=== PATIENT | male | born 1980 | race Caucasian/White ===

== ENCOUNTER 2022-08-16 15:20 | Outpatient (CLI) | payer OTHER, SELFPAY ==
[2022-08-16 18:25] LABS: Basophils Absolute Auto 0.1 K/mm3 (0.0-0.1); Basophils Percent Auto 0.9 % (0.2-1.2); Eosinophils Absolute Auto 0.5 K/mm3 (0-0.3); Eosinophils Percent Auto 5.8 % (0-4.4); Hematocrit 48.5 % (42.0-52.0); Hemoglobin 16.7 g/dL (14.0-18.0); Immature Granulocyte Absolute 0.05 K/mm3 (0.00-0.031); Immature Granulocyte Percent A 0.5 % (0-0.5); Lymphocytes Absolute Auto 2.32 K/mm3 (0.9-3.2); Lymphocytes Percent Auto 25.5 % (18.3-44.2); Mean Corpuscular HGB Conc 34.4 g/dl (32-36); Mean Corpuscular Hemoglobin 34.2 pg (26-34); Mean Corpuscular Volume 99.2 fl (80-100); Monocytes Percent Auto 10.8 % (2.6-8.5); Neutrophils Absolute Auto 5.1 K/mm3 (1.3-6.7); Neutrophils Percent Auto 56.5 % (45.5-73.1); Platelet Count Result 309 k/mm3 (150-375); Red Blood Count 4.89 M/mm3 (4.6-6.20); Red Cell Distribution Width 11.2 % (11.5-14.5); White Blood Count 9.1 K/mm3 (4.5-10.0)
[2022-08-16 18:31] LABS: Alanine Aminotransferase 86 U/L (6-50); Albumin Level 4.4 g/dL (3.5-5.1); Alkaline Phosphatase 91 U/L (38-126); Anion Gap 7 mmol/L (8-16); Aspartate Amino Transferase 67 U/L (17-59); Bilirubin,Total 0.8 mg/dL (0.2-1.3); Blood Urea Nitrogen 31 mg/dL (9-20); Calcium 9.4 mg/dL (8.4-10.2); Carbon Dioxide 30 mmol/L (22-30); Chloride 100 mmol/L (98-107); Cholesterol 223 mg/dL (0-200); Estimated Glomerular Filt Rate 55; Glucose 76 mg/dL (65-110); HDL Direct 89 mg/dL; Potassium 4.3 mmol/L (3.4-5.0); Sodium 137 mmol/L (137-145); Triglycerides 88 mg/dL (<150)
[2022-08-16 18:42] LABS: LDL Cholesterol Direct 103 mg/dL
[2022-08-16 18:59] LABS: Prostate Specific Antigen 0.2 ng/mL (< OR = 4.0)
[2022-08-22 18:56] LABS: Testosterone Free 2.7 pg/mL (35.0-155.0); Testosterone Total 20 ng/dL (250-1100)
== END 2022-08-16 15:21 | disposition home or self-care (01) ==
LOC: ANHGOSHLAB 15:22
PROVIDERS: PCP Family Medicine; Visit Provider Family Medicine
DX: I10 Essential (primary) hypertension (principal); R53.83 Other fatigue; E29.1 Testicular hypofunction; Z12.5 Encounter for screening for malignant neoplasm of prostate; Z13.220 Encounter for screening for lipoid disorders
CPT/HCPCS: 36415; 80053; 80061; 84153; 84402; 84403; 85025; G0103

== ENCOUNTER 2023-01-04 10:08 | Outpatient (CLI) | payer OTHER, SELFPAY ==
--- NOTE | ~2023-01-04 | XR_ITS ---
XR knee LT min 4V 01/04/2023 10:29 INDICATION: Left knee pain PROCEDURE: 4 views left knee COMPARISON: No prior studies for comparison. FINDINGS: Fracture, dislocation or subluxation is not identified. No significant joint effusion. Ther e is anatomic alignment. The soft tissues appear within normal limits. No foreign bodies are identif ied. IMPRESSION: 1: NO ACUTE BONE OR JOINT ABNORMALITY IDENTIFIED. Reviewed, dictated and finalized at location A.
== END 2023-01-04 10:09 | disposition home or self-care (01) ==
LOC: ANHIMG 10:09
PROVIDERS: PCP Family Medicine; Visit Provider Family Medicine
DX: M25.562 Pain in left knee (principal)
CPT/HCPCS: 73564

== ENCOUNTER 2023-12-26 14:42 | Outpatient (CLI) | payer OTHER, SELFPAY ==
[2023-12-26 16:26] LABS: Basophils Absolute Auto 0.1 K/mm3 (0.0-0.1); Basophils Percent Auto 0.8 % (0.2-1.2); Eosinophils Absolute Auto 0.3 K/mm3 (0-0.3); Eosinophils Percent Auto 2.4 % (0-4.4); Hematocrit 49.9 % (42.0-52.0); Immature Granulocyte Absolute 0.07 K/mm3 (0.00-0.031); Immature Granulocyte Percent A 0.6 % (0-0.5); Lymphocytes Absolute Auto 2.23 K/mm3 (0.9-3.2); Lymphocytes Percent Auto 19.9 % (18.3-44.2); Mean Corpuscular HGB Conc 34.1 g/dl (32-36); Mean Corpuscular Hemoglobin 33.2 pg (26-34); Mean Corpuscular Volume 97.5 fl (80-100); Mean Platelet Volume 10.1 fl (7.4-10.4); Monocytes Absolute Auto 1.1 K/mm3 (0.1-0.6); Monocytes Percent Auto 9.4 % (2.6-8.5); Neutrophils Absolute Auto 7.5 K/mm3 (1.3-6.7); Neutrophils Percent Auto 66.9 % (45.5-73.1); Platelet Count Result 354 k/mm3 (150-375); Red Blood Count 5.12 M/mm3 (4.6-6.20); White Blood Count 11.2 K/mm3 (4.5-10.0)
[2023-12-26 16:57] LABS: Alanine Aminotransferase 27 U/L (6-50); Albumin Level 4.6 g/dL (3.5-5.1); Alkaline Phosphatase 87 U/L (38-126); Anion Gap 8 mmol/L (4-12); Aspartate Amino Transferase 33 U/L (17-59); Bilirubin,Total 1.3 mg/dL (0.2-1.3); Blood Urea Nitrogen 28 mg/dL (9-20); Calcium 9.8 mg/dL (8.4-10.2); Carbon Dioxide 27 mmol/L (22-30); Chloride 102 mmol/L (98-107); Cholesterol 249 mg/dL (0-200); Estimated Glomerular Filt Rate 47; Glucose 96 mg/dL (65-110); HDL Direct 58 mg/dL; Potassium 4.4 mmol/L (3.4-5.0); Sodium 137 mmol/L (137-145); Triglycerides 121 mg/dL (<150)
[2023-12-26 17:07] LABS: LDL Cholesterol Direct 128 mg/dL
[2023-12-26 17:28] LABS: Prostate Specific Antigen 0.5 ng/mL (< OR = 4.0)
[2024-01-01 10:08] LABS: Testosterone Free 10.2 pg/mL (35.0-155.0); Testosterone Total 60 ng/dL (250-1100)
== END 2023-12-26 14:43 | disposition home or self-care (01) ==
LOC: ANHGOSHLAB 14:43
PROVIDERS: PCP Family Medicine; Visit Provider Family Medicine
DX: E29.1 Testicular hypofunction (principal); Z12.5 Encounter for screening for malignant neoplasm of prostate; R53.83 Other fatigue; Z13.228 Encounter for screening for other metabolic disorders
CPT/HCPCS: 36415; 80053; 80061; 84153; 84402; 84403; 85025; G0103

== ENCOUNTER 2024-10-14 10:43 | Outpatient (CLI) | payer BC, SELFPAY ==
--- OUTSIDE RECORDS SUMMARY | 2024-10-14 10:47 | XMS_ITS | Clinical Summary ---
Author Organization [facility] Address [address] [place] [address] Phone Care Team Providers Care Hoisting Pile Driving Engineer Name Role Phone Atif Bautista MD Primary Care Provider [phone] Social History Tobacco Use Types Packs/Day Years Used Date Smoking Tobacco: Never Assessed Sex and Gender Information Value Date Recorded Sex Assigned at Not on file Legal Sex Male 11:38 AM BOOKER Gender Identity Not on file Sexual Orientation Not on file Plan of Treatment Health Maintenance Due Date Last Done Comments Hepatitis C Virus (HCV) Screening 1978 TdaP Immunization 1978 Human Papillomavirus (HPV) Immunization (1 - Male 3-dose series) 1993 Hepatitis B Immunization (1 of 3 - 19+ 3-dose series) 1997 SARS-COV-2 Immunization ( - season) 2023 12/11/2020, 11/13/2020 Cologuard 12/27/2023 Colonoscopy 12/27/2023 Colorectal Cancer Screening 12/27/2023 Immunochemical Fecal Occult Blood 12/27/2023 Influenza Immunization (#1) 2024 Respiratory Syncytial Virus (RSV) Immunization (Adult) (1 - 1-dose 75+ series) 2053 Meningococcal Immunization (ACWY) Aged Out No longer eligible b ased on patient's age to complete this topic Pneumococcal Immunization Combined Aged Out No longer eligible b ased on patient's age to complete this topic Rotavirus Immunization Aged Out No lo nger eligible based on patient's age to complete this topic Care Teams Hoisting Pile Driving Engineer Relationship Specialty Start Date End Date Atif Bautista MD [address] [place] [address] [address] [place] [address] PCP - General Internal Medicine 05/21/21
--- OUTSIDE RECORDS SUMMARY | 2024-10-14 10:47 | XMS_ITS | Encounter Summary ---
Author Organization [facility] Address [address] [place] [address] Phone Care Team Providers Care Ota Name Role Phone Atif Bautista MD Primary Care Provider [phone] Encounter Details Date Type Department Care Team (Late st Contact Info) Description 05/21/2021 Lab Requisition [facility] [address] [place] [address] Molly Ibanez, SAIL FINISHER HAND, MEDICAL CLERICAL ASSISTANT [address] [place] [address] Encounter for pre-employment examination Social History Tobacco Use Types Packs/Day Years Used Date Smoking Tobacco: Never Assessed Sex and Gender Information Value Date Recorded Sex Assigned at Not on file Legal Sex Male 11:38 AM BORING MACHINE OPERATOR HELPER Gender Identity Not on file Sexual Orientation Not on file COVID-19 Exposure Response Date Recorded In the last month, have you been in contact with someone who was confirmed or suspected to have Coronavirus / COVID-19? Unable to assess 05/21/2021 11:47 AM BORING MACHINE OPERATOR HELPER documented as of this encounter Plan of Treatment Not on file documented as of this encounter Procedures Procedure Name Priority Date/Time Associated Diagnosis Comments QUANTIFERON-TB GOLD PLUS Routine 05/21/2021 9:50 AM BORING MACHINE OPERATOR HELPER Encounter for pre-employment examination documented in this encounter Results * QUANTIFERON-TB GOLD PLUS (05/21/2021 9:50 AM BORING MACHINE OPERATOR HELPER) NIL CONTROL 0.03 <8.01 IU/mL 05/23/2021 12:13 PM [facility] TB ANTIGEN 1 0.00 <0.35 IU/mL 05/23/2021 12:13 PM [facility] TB ANTIGEN 2 0.00 <0.35 IU/mL 05/23/2021 12:13 PM [facility] MITOGEN CONTROL >10.00 >0.49 IU/mL 05/24/19 12:13 PM [facility] INTEPRETATION TB NEGATIVE NEGATIVE, NEGATIVE (TB antigen response less than 25% of internal negative control value) 05/23/2021 12:13 PM [facility] Comment:No immune response t o Mycobacterium tuberculosis antigens was noted. M. tuberculosis infection unlikely. Blood No Phlebotomy Charged / Unknown 05/21/2021 9:50 AM BORING MACHINE OPERATOR HELPER 05/21/2021 1:02 PM [facility] - 05/23/2021 12:13 PM BORING MACHINE OPERATOR HELPER A POSITIVE QUANTIFERON-TB GOLD PLUS RESULT SHOULD NOT BE THE SOLE OR DEFINITIVE BASIS FOR DETERMINING INFECTION WITH M.TUBERCULOSIS. Diagnosing or excluding tuberculosis disease, and assessing the probability of LTBI, requires a combination of epidemiological, historical, medical and diagnostic findings (e.g., acid fast bacilli (AFB) smear and culture, chest xray) that should be taken into account when interpreting QFT-Plus results. Furthermore, the magnitude of the measured gamma interferon level cannot be correlated to stage or degree of infection, level of immune responsiveness, or likelihood for progression to active disease. The Nil control adjusts for background (e.g., elevated levels of circulating gamma interferon or presence of heterophile antibodies). The Mitogen control serves as an internal positive control and verifies each specimen tested can produce a gamma interferon response. Low mitogen may occur with insufficient lymphocytes, reduced lymphocyte activity due to improper specimen handling, filling/mixing of the mitogen tube, or inability of the patient's lymphocytes to generate gamma interferon. Infection with other Mycobacteria, including M. kansasii, M. szulgai, and M. marinum, may cause false positive results. A negative QuantiFERON-TB Gold Plus result does not preclude the possibility of M. tuberculosis infection or tuberculosis disease: false negative results can be due to incorrect blood sample collection/ improper handling of the specimen, stage of infection (e.g., specimen obtained prior to the development of cellular immune response), co-morbid conditions which affect immune function, or other individual immunological factors. The minimum number of lymphocytes required for a reliable test has not been established and may also be variable. Diagnostic testing for Mycobacterium tuberculosis using Interferon Gamma Release Assays should follow applicable published guidelines, including when testing in populations such as children, women, and HIV-infected or otherwise immunocompromised individuals. https://www.cdc.gov/tb/publications/guidelines/testing.htm Molly Ibanez APRN, CNP IMMUNOLOGY ORDERABLES F inal Result [facility] [address] [place] [address], documented in this encounter Visit Diagnoses Diagnosis Encounter for pre-employment examination Health examination of defined subpopulation documented in this encounter Care Teams Ota Relationship Specialty Start Date End Date Atif Bautista MD [address] [place] [address] [address] [place] [address] PCP - General Internal Medicine 05/21/21 documented as of this encounter
--- OUTSIDE RECORDS SUMMARY | 2024-10-14 10:47 | XMS_ITS | Referral Summary ---
Author Organization [address] Address [address] [place] [address] Care Team Providers Care Item Repair Manager Name Role Phone Mj Guzman DO Primary Care Provider [phone] Allergies No known active allergies Medications atorvastatin (LIPITOR) 20 mg tablet Take 20 mg by mouth daily 05/03/19 Active hydroCHLOROthi azide (HYDRODIURIL) 12.5 mg tablet TAKE 1 TABLET BY MOUTH ONCE DAILY . APPOINTMENT REQUIRED FOR FUTURE REFILLS 05/06/19 23 Active lisinopriL (PRINIVIL,ZEST RIL) 10 mg tablet Take 10 mg by mouth daily 05/03/19 23 Active testosterone cypionate (DEPO-TESTOTER ONE) 200 mg/mL injection INJECT 1.5ML (300MG) INTRAMUSCULARLY EVERY 2 WEEKS. 05/04/19 Active BD Luer-Kasia Syringe 3 mL 23 x 1 syringe USE 1 SYRINGE TO INJECT TESTOSTERONE EVERY TWO WEEKS 05/03/19 Active mupirocin (BACTROBAN) 2 % ointmentIndica tions:Cellulit is of right forearm APPLY OINTMENT TOPICALLY THREE TIMES DAILY 22 g 01/12/20 23 Active Active Problems No known active problems Immunizations Immunization Administration Dates Next Due Tdap 01/09/2023 Social History Tobacco Use Types Packs/Day Years Used Date Smoking Tobacco: Never Assessed Sex and Gender Information Value Date Recorded Sex Assigned at Not on file Legal Sex Male 10:41 PM BODY DESIGNER Gender Identity Not on file Sexual Orientation Not on file Last Filed Vital Signs Vital Sign Reading Time Taken Comments Blood Pressure 126/80 01/09/2023 3:14 PM CDT Pulse 105 01/09/2023 3:14 PM CDT Temperature 37.1 C (98.8 F) 01/09/2023 3:14 PM CDT Respiratory Rate 16 01/09/2023 3:14 PM CDT Oxygen Saturation 98% 01/09/2023 3:14 PM CDT Inhaled Oxygen Concentration - - Weight 90.7 kg (200 lb) 01/09/2023 3:14 PM CDT Height 177.8 cm (5' 10) 05/21/2022 8:49 AM BODY DESIGNER Body Mass Index 28.7 05/21/2022 8:49 AM BODY DESIGNER Plan of Treatment Not on file Insurance [employer] OPEN ACCESS Care Teams Item Repair Manager Relationship Specialty Start Date End Date Mj Guzman DO PCP - General Family Medicine 05/21/22
--- OUTSIDE RECORDS SUMMARY | 2024-10-14 10:47 | XMS_ITS | Clinical Summary ---
Author Organization [address] Address [address] [place] [address] Care Team Providers Care Dean Of Chapel Name Role Phone Mj Guzman DO Primary Care Provider [phone] Allergies No known active allergies Medications atorvastatin (LIPITOR) 20 mg tablet Take 20 mg by mouth daily 05/03/19 23 Active hydroCHLOROthi azide (HYDRODIURIL) 12.5 mg tablet TAKE 1 TABLET BY MOUTH ONCE DAILY . APPOINTMENT REQUIRED FOR FUTURE REFILLS 05/06/19 23 Active lisinopriL (PRINIVIL,ZEST RIL) 10 mg tablet Take 10 mg by mouth daily 05/03/19 23 Active testosterone cypionate (DEPO-TESTOTER ONE) 200 mg/mL injection INJECT 1.5ML (300MG) INTRAMUSCULARLY EVERY 2 WEEKS. 05/04/19 23 Active BD Luer-Kasia Syringe 3 mL 23 x 1 syringe USE 1 SYRINGE TO INJECT TESTOSTERONE EVERY TWO WEEKS 05/03/19 23 Active mupirocin (BACTROBAN) 2 % ointmentIndica tions:Cellulit is of right forearm APPLY OINTMENT TOPICALLY THREE TIMES DAILY 22 g 01/12/20 23 Active Active Problems No known active problems Immunizations Immunization Administration Dates Next Due Tdap 01/09/2023 Medical History Medical History Date Comments Anxiety Hyperlipidemia Family History Medical History Relation Name Comments Heart attack Father Stroke Maternal Grandmother Heart attack Mother Relation Name Status Comments Father Maternal Grandmother Mother Social History Tobacco Use Types Packs/Day Years Used Date Smoking Tobacco: Never Assessed Sex and Gender Information Value Date Recorded Sex Assigned at Not on file Legal Sex Male 10:41 PM MERCHANDISING ASSISTANT Gender Identity Not on file Sexual Orientation Not on file Obstetrics History Last Filed Vital Signs Vital Sign Reading [...] 177.8 cm (5' 10) 05/21/2022 8:49 AM MERCHANDISING ASSISTANT Body Mass Index 28.7 05/21/2022 8:49 AM MERCHANDISING ASSISTANT Plan of Treatment Health Maintenance Due Date Last Done Comments Colon Cancer Screening-Colonoscopy 1978 Depression Screening 1978 Hepatitis C Screening 1978 Hepatitis B Screening 1996 Regular Well Visit/Exam 18-64 1996 HPV Vaccines (1 - 3-dose SCD M series) 2005 Covid-19 Vaccine (2023-2 5 season) 2023 12/11/2020, 11/13/2020 Influenza Vaccine (#1) 2024 DTaP/Tdap/Td Vaccine (2 - Td or Tdap) 01/09/2033 01/09/2023 Pneumococcal vaccine <65 Aged Out No longer eligible based on patient's age to complete this topic Insurance [employer] OPEN ACCESS Care Teams Dean Of [place] Relationship Specialty Start Date End Date Mj Guzman DO PCP - General Family Medicine 05/21/22
[2024-10-14 13:09] LABS: Hematocrit 55.1 % (42.0-52.0); Hemoglobin 18.5 g/dL (14.0-18.0); Immature Granulocyte Percent A 0.4 % (0-0.5); Lymphocytes Absolute Auto 1.65 K/mm3 (0.9-3.2); Mean Corpuscular HGB Conc 33.6 g/dl (32-36); Mean Corpuscular Hemoglobin 32.7 pg (26-34); Mean Corpuscular Volume 97.3 fl (80-100); Nucleated Red Blood Cells Absolute Auto 0.000 K/mm3 (0.0-0.012); Nucleated Red Blood Cells Perc 0.0 % (0.0-0.2); Platelet Count Result 343 k/mm3 (150-375); Red Blood Count 5.66 M/mm3 (4.6-6.20); White Blood Count 8.0 K/mm3 (4.5-10.0)
[2024-10-14 13:39] LABS: Prostate Specific Antigen 0.6 ng/mL (< OR = 4.0)
[2024-10-18 01:07] LABS: Free Testosterone (Direct) 27.7 pg/mL (6.8-21.5)
== END 2024-10-14 10:44 | disposition home or self-care (01) ==
LOC: ANHGOSHLAB 10:44
PROVIDERS: PCP Internal Medicine; Visit Provider Internal Medicine
DX: E29.1 Testicular hypofunction (principal); Z79.890 Hormone replacement therapy; R53.83 Other fatigue
CPT/HCPCS: 36415; 84153; 84402; 84403; 85025

== ENCOUNTER 2024-10-18 14:45 | Outpatient (CLI) | payer BC, SELFPAY ==
--- OUTSIDE RECORDS SUMMARY | 2024-10-18 15:00 | XMS_ITS | Encounter Summary ---
Author Organization [facility] Address [address] [place] [address] Phone Care Team Providers Care Exit Booth Agent Name Role Phone Atif Bautista MD Primary Care Provider [phone] Encounter Details Date Type Department Care Team (Late st Contact Info) Description 05/21/2021 Lab Requisition [facility] [address] [place] [address] Molly Ibanez, TERMINOLOGIST, CLINIC MD ASSOCIATE [address] [place] [address] Encounter for pre-employment examination Social History Tobacco Use Types Packs/Day Years Used Date Smoking Tobacco: Never Assessed Sex and Gender Information Value Date Recorded Sex Assigned at Not on file Legal Sex Male 11:38 AM SALES SUPPORT REP Gender Identity Not on file Sexual Orientation Not on file COVID-19 Exposure Response Date Recorded In the last month, have you been in contact with someone who was confirmed or suspected to have Coronavirus / COVID-19? Unable to assess 05/21/2021 11:47 AM SALES SUPPORT REP documented as of this encounter Plan of Treatment Not on file documented as of this encounter Procedures Procedure Name Priority Date/Time Associated Diagnosis Comments QUANTIFERON-TB GOLD PLUS Routine 05/21/2021 9:50 AM SALES SUPPORT REP Encounter for pre-employment examination documented in this encounter Results * QUANTIFERON-TB GOLD PLUS (05/21/2021 9:50 AM SALES SUPPORT REP) NIL CONTROL 0.03 <8.01 IU/mL 05/23/2021 12:13 PM [facility] TB ANTIGEN 1 0.00 <0.35 IU/mL 05/23/2021 12:13 PM [facility] TB ANTIGEN 2 0.00 <0.35 IU/mL 05/23/2021 12:13 PM [facility] MITOGEN CONTROL >10.00 >0.49 IU/mL 05/24/19 12:13 PM [facility] INTEPRETATION TB NEGATIVE NEGATIVE, NEGATIVE (TB antigen response less than 25% of internal negative control value) 05/23/2021 12:13 PM [facility] Comment:No immune response t o Mycobacterium tuberculosis antigens was noted. M. tuberculosis infection unlikely. Blood No Phlebotomy Charged / Unknown 05/21/2021 9:50 AM SALES SUPPORT REP 05/21/2021 1:02 PM [facility] - 05/23/2021 12:13 PM SALES SUPPORT REP A POSITIVE QUANTIFERON-TB GOLD PLUS RESULT SHOULD [...] CNP IMMUNOLOGY ORDERABLES F inal Result [facility] [address] [place] [address], documented in this encounter Visit Diagnoses Diagnosis Encounter for pre-employment examination Health examination of defined subpopulation documented in this encounter Care Teams Exit Booth Agent Relationship Specialty Start Date End Date Atif Bautista MD [address] [place] [address] [address] [place] [address] PCP - General Internal Medicine 05/21/21 documented as of this encounter
--- OUTSIDE RECORDS SUMMARY | 2024-10-18 15:00 | XMS_ITS | Referral Summary ---
Author Organization [address] Address [address] [place] [phone] Care Team Providers Care Warp Knitter Name Role Phone Mj Guzman DO Primary Care Provider [phone] Allergies No known active allergies Medications atorvastatin [...] on file Legal Sex Male 10:41 PM TRAFFIC TECHNICIAN Gender Identity Not on file Sexual Orientation [...] 177.8 cm (5' 10) 05/21/2022 8:49 AM TRAFFIC TECHNICIAN Body Mass Index 28.7 05/21/2022 8:49 AM TRAFFIC TECHNICIAN Plan of Treatment Not on file Insurance [employer] OPEN ACCESS Care Teams Warp Knitter Relationship Specialty Start Date End Date Mj Guzman DO PCP - General Family Medicine 05/21/22
--- OUTSIDE RECORDS SUMMARY | 2024-10-18 15:00 | XMS_ITS | Clinical Summary ---
Author Organization [facility] Address [address] [place] [address] Phone Care Team Providers Care Outside Sales Advertising Executive Name Role Phone Atif Bautista MD Primary Care Provider [phone] Social History Tobacco Use Types Packs/Day Years Used Date Smoking Tobacco: Never Assessed Sex and Gender Information Value Date Recorded Sex Assigned at Not on file Legal Sex Male 11:38 AM DENTAL PRACTITIONER Gender Identity Not on file Sexual Orientation [...] age to complete this topic Care Teams Outside Sales Advertising Executive Relationship Specialty Start Date End Date Atif Bautista MD [address] [place] [address] [address] [place] [address] PCP - General Internal Medicine 05/21/21
--- OUTSIDE RECORDS SUMMARY | 2024-10-18 15:00 | XMS_ITS | Clinical Summary ---
Author Organization [address] Address [address] [place] [address] Care Team Providers Care Advertising Sales Associate Name Role Phone Mj Guzman DO Primary Care Provider [phone] Allergies No known active allergies Medications atorvastatin [...] on file Legal Sex Male 10:41 PM DEPUTY CHIEF SHERIFF Gender Identity Not on file Sexual Orientation [...] 177.8 cm (5' 10) 05/21/2022 8:49 AM DEPUTY CHIEF SHERIFF Body Mass Index 28.7 05/21/2022 8:49 AM DEPUTY CHIEF SHERIFF Plan of Treatment Health Maintenance Due Date [...] patient's age to complete this topic Insurance [employer] OPEN ACCESS Care Teams Advertising Sales Associate Relationship Specialty Start Date End Date Mj Guzman DO PCP - General Family Medicine 05/21/22
[2024-10-18 19:30] LABS: Alanine Aminotransferase 19 U/L (6-50); Albumin Level 4.4 g/dL (3.5-5.1); Alkaline Phosphatase 70 U/L (38-126); Anion Gap 12 mmol/L (4-12); Aspartate Amino Transferase 38 U/L (17-59); Bilirubin,Total 1.0 mg/dL (0.2-1.3); Blood Urea Nitrogen 16 mg/dL (9-20); Calcium 9.6 mg/dL (8.4-10.2); Carbon Dioxide 25 mmol/L (22-30); Chloride 102 mmol/L (98-107); Estimated Glomerular Filt Rate 59; Glucose 71 mg/dL (65-110); Potassium 4.1 mmol/L (3.4-5.0); Sodium 139 mmol/L (137-145); Total Protein 8.4 g/dL (6.3-8.2)
== END 2024-10-18 14:46 | disposition home or self-care (01) ==
LOC: ANHGOSHLAB 14:46
PROVIDERS: PCP Internal Medicine; Visit Provider Internal Medicine
DX: I10 Essential (primary) hypertension (principal); E23.0 Hypopituitarism; Q60.0 Renal agenesis, unilateral; Z79.890 Hormone replacement therapy
CPT/HCPCS: 36415; 80053